=== PATIENT | male | born 1965 | race Caucasian/White ===

== ENCOUNTER 2024-01-09 12:23 | Emergency (ER) | payer OTHER, SELFPAY ==
[2024-01-09] VITALS (24 sets, daily range): BP systolic 110–150; BP diastolic 77–101; PULSE 59–78; O2SAT 94–100; BMI 18.5
--- NOTE | 2024-01-09 12:44 | ECG_ITS ---
[facility] Test Date: 2024-01-09 Pat Name: LIANET LARA Department: Room: - Gender: Male Physical Therapy Resident: : 1965 Requested By: Order Number: [id number] Reading MD: MISTY BERMEO Measurements Intervals [place] Rate: 65 P: 55 NH: 160 QRS: 81 QRSD: 106 T: 55 QT: 378 QTc: 389 Interpretive Statements 1100 Sinus rhythm 9110 normal ECG No previous ECG available for comparison Electronically Signed On 01-09-2024 17:19:41 EDT by MISTY BERMEO
--- NOTE | 2024-01-09 12:44 | XR_ITS ---
[address] [address] Patient Name: LIANET LARA MRN: [id number] date: 1965 Sex: M Assigned Patient Location: ER Current Patient Location: ER Accession/Order Number: [id number] Exam Date: 01/09/2024 12:58 Report Date: 01/09/2024 13:37 At the request of: JULIEN MUELLER Procedure: XR chest 1V EXAM: XR chest 1V HISTORY: cp COMPARISON: None FINDINGS/IMPRESSION: 1. Lungs are clear 2. No pneumothorax. No pleural effusion. 3. Heart size and mediastinal contours are normal 4. No acute osseous abnormality Electronically authenticated by: BIJU OCHOA Date: 01/09/2024 13:37
[2024-01-09 12:52] LABS: Basophils Percent Auto 0.7 % (0.2-2.0); Eosinophils Absolute Auto 0.1 10^3/uL (0.0-0.7); Eosinophils Percent Auto 1.2 % (0.9-7.0); Hematocrit 44.2 % (42.0-54.0); Hemoglobin 14.9 g/dL (14.0-18.0); Immature Granulocytes Abs Auto 0.01 10^3/uL (0.00-0.03); Immature Granulocytes Pct Auto 0.2 % (0.0-0.5); Lymphocytes Absolute Auto 1.9 10^3/uL (1.2-3.8); Lymphocytes Percent Auto 33.6 % (20.5-60.0); Mean Corpuscular HGB Conc 33.7 g/dL (29.9-35.2); Mean Corpuscular Hemoglobin 31.4 pg (25.9-34.0); Mean Corpuscular Volume 93.1 fL (80.0-94.0); Mean Platelet Volume 10.3 fL (9.5-13.5); Monocytes Absolute Auto 0.5 10^3/uL (0.3-0.8); Monocytes Percent Auto 8.6 % (1.7-12.0); Neutrophils Absolute Auto 3.2 10^3/uL (1.4-6.5); Neutrophils Percent Auto 55.7 % (43.0-75.0); Platelet Count 246 10^3/uL (150-450); Red Blood Count 4.75 10^6/uL (4.70-6.10); Red Cell Distribution Width 12.1 % (11.0-15.0); White Blood Count 5.7 10^3/uL (4.0-11.0)
[2024-01-09] MEDS: NITROGLYCERIN 0.4 MG BOTTLE SL (13:03)
[2024-01-09 13:11] LABS: INR 1.01; Prothrombin Time 10.7 sec (9.0-11.6)
[2024-01-09 13:18] LABS: Alanine Aminotransferase 25 U/L (16-63); Albumin Globulin Ratio 1.2; Albumin Level 3.8 g/dL (3.4-5.0); Alkaline Phosphatase 64 U/L (46-116); Anion Gap 10.2; Aspartate Amino Transferase 16 U/L (15-37); BUN Creatinine Ratio 13.3; Bilirubin Total 0.3 mg/dL (0.2-1.0); Calcium 9.2 mg/dL (8.5-10.1); Carbon Dioxide 29.6 mmol/L (21.0-32.0); Chloride 102 mmol/L (98-107); Estimated GFR (African America >60 (>=60); Estimated GFR (Non-African Ame >60 (>=60); Globulin 3.2 g/dL; Glucose 89 mg/dL (74-106); Potassium 3.8 mmol/L (3.5-5.1); Sodium 138 mmol/L (136-145); Troponin I High Sensitivity <4.0 pg/mL (4.0-76.1)
[2024-01-09] MEDS: FAMOTIDINE/PF 20 MG/2 ML VIAL IV (14:18)
[2024-01-09 14:48] LABS: Troponin I High Sensitivity <4.0 pg/mL (4.0-76.1)
--- NOTE | 2024-01-09 15:04 | ED.CHESTPAI1 ---
HPI - Chest Pain General Chief Complaint: Chest Pain Stated Complaint: CHEST PAIN Time Seen by Provider: 01/09/24 12:44 Source: patient Mode of arrival: walk-in History of Present Illness HPI narrative: The patient is coming to the ER with a chest pain that started this morning, noticed over the last few days been more tired sometime when exerting himself although he mentioned that he used the stairs all the time at home with no chest pain, the patient mentioned that this pain started almost an hour after he was awake he was eating his breakfast when this pain started and he was drinking coffee, more of a left-sided chest pain associated with nausea, the patient mentioned that also it is pressure-like with no radiation No similar symptoms before and the patient mentioned that he have no relation of the pain with exertion no relation with difficulty breathing and no fever chills or any other concern Patient mentioned that he have a family history of coronary artery disease specifically his father who had a coronary artery disease diagnosed at the 50s of his age The patient also mentioned that he is a smoker of less than a pack of cigarettes per day Related Data Previous Rx's ?Medication ?Instructions ?Recorded famotidine 20 mg tablet (Pepcid) 20 mg PO BID #10 tabs 01/09/24 Allergies Allergy/AdvReac Type Severity Reaction Status Date / Time erythromycin base AdvReac Severe sore throat Verified 01/09/24 12:34 hydromorphone [From Dilaudid] AdvReac Severe Nausea Verified 01/09/24 12:34 Review of Systems ROS Status of ROS 10 or more systems reviewed and unremarkable except as noted in history and below Exam Narrative Exam Narrative: Nurses notes and vital signs reviewed and patient is not hypoxic. General: Well-appearing and in no apparent distress. Skin: Warm, dry, no pallor noted. No rash. Head: Normocephalic, atraumatic. Neck: Supple, non-tender. Eye: Pupils are equal, round and EOMI. No scleral icterus. Ears, Nose, Mouth, and Throat: TM are clear, no nasal mucosal hypertrophy. Oral mucosa is moist, no posterior oropharynx erythema, uvula is mid-line Cardiovascular: Regular Rate and Rhythm without murmur, gallop or rub. Respiratory: No accessory muscle use or respiratory distress. Lungs are clear to auscultation, no wheezing, rales or rhonchi Chest Wall: no tenderness Back: No midline thoracic or lumbar vertebral tenderness. No CVA tenderness Musculoskeletal: normal ROM, no calf or popliteal tenderness, no lower extremity edema/swelling GI: Abdomen is soft, non-distended. Normal bowel sounds. No masses appreciated. No tenderness to palpation. No rebound, guarding, or rigidity noted. Neurological: A&O x4. No cranial nerve dysfunction observed. No truncal ataxia. Moves all extremities. Sensation intact. Psychiatric: Cooperative and interactive. Normal mood and affect. Constitutional Vital Signs, click to edit/add: Last Vital Signs Pulse 62 01/09/24 13:45 Resp 16 01/09/24 13:45 BP 120/83 01/09/24 13:45 Pulse Ox 97 01/09/24 13:45 Course Vital Signs Vital signs: Vital Signs Pulse Rate 67 01/09/24 12:28 Respiratory Rate 18 01/09/24 12:28 Blood Pressure 150/98 H 01/09/24 12:28 Pulse Oximetry 98 01/09/24 12:28 Pulse Rate 62 01/09/24 13:45 Respiratory Rate 16 01/09/24 13:45 Blood Pressure 120/83 01/09/24 13:45 Pulse Oximetry 97 01/09/24 13:45 MDM - Chest Pain MDM Narrative Medical decision making narrative: The patient EKG showing sinus rhythm with a heart rate of [address] elevation or depression CBC chemistry showed no acute pathology Chest x-ray showed no acute pathology as well The patient troponin repeated twice showed no elevation Patient was feeling much better after nitro initially and Pepcid Patient still have risk factor he was discharged to follow-up with cardiology as outpatient instructed to come back in case of new symptoms or concern The patient presentation is mostly secondary to atypical chest pain but with his risk factor he need to follow-up with cardiology for further evaluation and possible stress test The patient is to follow up with primary care physician in next 2-3 days or to return to the emergency department should any of the signs or symptoms worsen or new symptoms develop. The patient agrees with the following Diagnosis and Treatment plan and the patient will be discharged home. Lab Data Labs: Lab Results 01/09/24 01/09/24 Range/Units 12:41 14:06 WBC 5.7 (4.0-11.0) 10^3/uL RBC 4.75 (4.70-6.10) 10^6/uL Hgb 14.9 (14.0-18.0) g/dL Hct 44.2 (42.0-54.0) % MCV 93.1 (80.0-94.0) fL MCH 31.4 (25.9-34.0) pg MCHC 33.7 (29.9-35.2) g/dL RDW 12.1 (11.0-15.0) % Plt Count 246 (150-450) 10^3/uL MPV 10.3 (9.5-13.5) fL Neut % (Auto) 55.7 (43.0-75.0) % Lymph % (Auto) 33.6 (20.5-60.0) % [place] % (Auto) 8.6 (1.7-12.0) % Eos % (Auto) 1.2 (0.9-7.0) % Baso % (Auto) 0.7 (0.2-2.0) % Neut # (Auto) 3.2 (1.4-6.5) 10^3/uL Lymph # (Auto) 1.9 (1.2-3.8) 10^3/uL [place] # (Auto) 0.5 (0.3-0.8) 10^3/uL Eos # (Auto) 0.1 (0.0-0.7) 10^3/uL Baso # (Auto) 0.0 (0.0-0.1) 10^3/uL Abs Immat Gran (auto) 0.01 (0.00-0.03) 10^3/uL Imm/Tot Granulo (auto) 0.2 (0.0-0.5) % PT 10.7 (9.0-11.6) sec INR 1.01 Sodium 138 (136-145) mmol/L Potassium 3.8 (3.5-5.1) mmol/L Chloride 102 (98-107) mmol/L Carbon Dioxide 29.6 (21.0-32.0) mmol/L Anion Gap 10.2 BUN 12.0 (7.0-18.0) mg/dL Creatinine 0.90 (0.70-1.30) mg/dL Est GFR ( Amer) >60 (>=60) Est GFR (Non-Af Amer) >60 (>=60) BUN/Creatinine Ratio 13.3 Glucose 89 (74-106) mg/dL Calcium 9.2 (8.5-10.1) mg/dL Total Bilirubin 0.3 (0.2-1.0) mg/dL AST 16 (15-37) U/L ALT 25 (16-63) U/L Alkaline Phosphatase 64 (46-116) U/L Troponin I High Sens <4.0 L <4.0 L (4.0-76.1) pg/mL Total Protein 7.0 (6.4-8.2) g/dL Albumin 3.8 (3.4-5.0) g/dL Globulin 3.2 g/dL Albumin/Globulin Ratio 1.2 Discharge Plan Discharge Stand Alone Forms: Work/School Release, Portal Instructions Chief Complaint: Chest Pain Clinical Impression: Chest pain Qualifiers: Chest pain type: other chest pain Qualified Code(s): R07.89 - Other chest pain Patient Disposition: Home, Self-Care Time of Disposition Decision: 15:04 Condition: Good Prescriptions / Home Meds: New famotidine [Pepcid] 20 mg tablet 20 mg PO BID Qty: 10 0RF Print Language: Armenian Instructions: Chest Pain (DC) Referrals: Physician,Non-Staff, [Primary Care Provider] - 1 week Juvenal Cunha MD [Physician] - 1 week
== END 2024-01-09 15:17 | disposition home or self-care (01) ==
PROVIDERS: Emergency Provider Emergency Medicine
DX: R07.89 Other chest pain (principal); F17.210 Nicotine dependence, cigarettes, uncomplicated
CPT/HCPCS: 36415; 71045; 80053; 84484; 85025; 85610; 93005; 96374; 99285